=== PATIENT | female | born 1975 | race African-American/Black ===

== ENCOUNTER 2016-11-22 13:04 | Emergency (ER) | payer MEDICAID, MEDICARE, OTHER ==
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
== END 2016-11-22 14:00 | disposition home or self-care (01) ==
LOC: FB.ED 13:04
CPT/HCPCS: 99283

== ENCOUNTER 2018-03-05 12:04 | Emergency (ER) | payer MEDICARE, MEDICAID ==
--- NOTE | 2018-03-05 12:20 | EDM.PDOC ---
ED HPI GENERAL MEDICAL PROBLEM - General Stated Complaint: RT FOOT Time Seen by Provider: 03/05/18 12:04 Source of Information: Reports: Patient History Limitations: Reports: No Limitations - History of Present Illness INITIAL COMMENTS - FREE TEXT/NARRATIVE: 42 y.o.b f came to the ed by herself after she injured her right lower leg, not at work. Pt has pain at her right ankle, right foot and T/F when walking. She noticed an abrasion on her right No other acute medical issues. BP 154/103 RR 18 pulse ox 100% on RA, Temp 36.8 Pt took motrin at 7 am today Onset Date: 03/05/18 Onset Time: 11:46 Duration: Hour(s): Location: Reports: Lower Extremity, Right Quality: Reports: Ache, Dull, Pressure Severity: Moderate Improves with: Reports: Rest Worsens with: Reports: Movement Context: Reports: Trauma Associated Symptoms: Reports: No Other Symptoms - Related Data Allergies Allergy/AdvReac Type Severity Reaction Status Date / Time naproxen Allergy Bleeding Verified 03/05/18 12:33 Sulfa (Sulfonamide Allergy Rash Verified 03/05/18 12:33 Antibiotics) numerous food allergies Allergy Nausea Uncoded 03/05/18 12:33 Home Meds: Home Meds ALPRAZolam [Alprazolam] 0.5 mg PO BID PRN 11/22/16 [History] Acetaminophen/HYDROcodone [[place] 325-10 MG] 1 tab PO QID 11/22/16 [History] Baclofen 20 mg PO TID PRN 11/22/16 [History] Escitalopram [Lexapro] 10 mg PO BEDTIME 11/22/16 [History] Estradiol 1 mg PO DAILY 11/22/16 [History] Gabapentin [Neurontin] 400 mg PO BEDTIME 11/22/16 [History] Gabapentin [Neurontin] 800 mg PO DAILY 11/22/16 [History] Hydrochlorothiazide 25 mg PO DAILY 11/22/16 [History] Prazosin HCl [Prazosin] 2 mg PO BEDTIME 11/22/16 [History] clonazePAM [Klonopin] 1 mg PO TID 11/22/16 [History] lamoTRIgine 200 mg PO BEDTIME 11/22/16 [History] Past Medical History Cardiovascular History: Reports: Hypertension Respiratory History: Reports: Asthma 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 Musculoskeletal History: Reports: Fibromyalgia, Other (See Below) Other Musculoskeletal History: torn rotator cuff on left Neurological History: Reports: Other (See Below) Other Neuro History: recent subdural hematoma Psychiatric History: Reports: Anxiety, Depression - Past Surgical History Other GI Surgeries/Procedures: gastric sleeve Musculoskeletal Surgical History: Reports: Carpal Tunnel, Other (See Below) Social & Family History - Family History Family Medical History: Noncontributory - Caffeine Use Caffeine Use: Reports: Coffee, Soda Review of Systems - Review of Systems Review Of Systems: See Below Constitutional: Reports: No Symptoms Eyes: Reports: No Symptoms Ears: Reports: No Symptoms Nose: Reports: No Symptoms Mouth/Throat: Reports: No Symptoms Respiratory: Reports: No Symptoms Cardiovascular: Reports: No Symptoms GI/Abdominal: Reports: No Symptoms Genitourinary: Reports: No Symptoms Musculoskeletal: Reports: Leg Pain (right leg) Skin: Reports: Wound (abrasion right lower leg) Neurological: Reports: No Symptoms Psychiatric: Reports: No Symptoms ED EXAM, GENERAL - Physical Exam Exam: See Below Exam Limited By: No Limitations General Appearance: Alert, WD/WN, Mild Distress Eye Exam: Bilateral Eye: Normal Inspection Ears: Normal External Exam Ear Exam: Bilateral Ear: Auricle Normal Nose: Normal Inspection, Normal Mucosa Throat/Mouth: Normal Inspection, Normal Lips, Normal Voice, No Airway Compromise Head: Atraumatic, Normocephalic Neck: Normal Inspection, Supple, Non-Tender Respiratory/Chest: No Respiratory Distress, Lungs Clear, Normal Breath Sounds, No Accessory Muscle Use, Chest Non-Tender Cardiovascular: Normal Peripheral Pulses, Regular Rate, Rhythm, No Edema Peripheral Pulses: 1+: Radial (L) GI/Abdominal: Normal Bowel Sounds (Female) Exam: Deferred Rectal (Female) Exam: Deferred Back Exam: Normal Inspection Extremities: Normal Inspection, Normal Range of Motion, Non-Tender, No Pedal Edema Neurological: Alert, Oriented, CN II-XII Intact, Normal Cognition Psychiatric: Normal Affect, Normal Mood Skin Exam: Warm, Dry, Intact, Normal Color, No Rash Lymphatic: No Adenopathy Course - Vital Signs Text/Narrative:: 42 y.o.b f came to the ed by herself after she injured her right lower leg, not at work. Pt has pain at her right ankle, right foot and T/F when walking. She noticed an abrasion on her right No other acute medical issues. BP 154/103 RR 18 pulse ox 100% on RA, Temp 36.8 Imaging: X Ray of right foot, ankle an dT/F were all NEG Impression: R lower leg sprain, abrasion Tx: Ice, Motrin Reexam: Improved Plan: D/C with instructions - Orders/Labs/Meds Orders: Active Orders 24 hr Category Date Time Status Cooling Warming Measures [RC] ASDIRECTED Care 03/05/18 12:22 Active Foot Comp Min 3V Rt [CR] Stat Exams 03/05/18 12:49 Taken Tibia Fibula Rt [CR] Stat Exams 03/05/18 12:49 Taken Ice Therapy [OM.PC] Routine Oth 03/05/18 12:22 Ordered Meds: Medications Discontinued Medications Generic Name Dose Route Start Last Admin Trade Name Brian PRN Reason Stop Dose Admin Ibuprofen 600 mg 03/05/18 12:22 03/05/18 13:27 Motrin PO 03/05/18 12:23 600 mg ONETIME ONE Administration Departure - Departure Time of Disposition: 15:03 Disposition: Home, Self-Care 01 Condition: Good Clinical Impression: Abrasion Sprain of right lower leg Qualifiers: Encounter type: initial encounter Qualified Code(s): S83.91XA - Sprain of unspecified site of right knee, initial encounter - Discharge Information Instructions: Ankle Sprain Referrals: Eloisa Pickard NP [Primary Care Provider] - Forms: ED Return to Work/School Form Additional Instructions: Please take Motrin for pain, please apply ICE to the affected area, please elevate right leg, apply neosporine to abrasion twice daily. Please f/u with your PMD, come back to the ED if your symptoms get worse acutely - My Orders Last 24 Hours: My Active Orders 03/05/18 12:22 Cooling Warming Measures [RC] ASDIRECTED Ice Therapy [OM.PC] Routine 03/05/18 12:49 Foot Comp Min 3V Rt [CR] Stat Tibia Fibula Rt [CR] Stat - Assessment/Plan Last 24 Hours: My Active Orders 03/05/18 12:22 Cooling Warming Measures [RC] ASDIRECTED Ice Therapy [OM.PC] Routine 03/05/18 12:49 Foot Comp Min 3V Rt [CR] Stat Tibia Fibula Rt [CR] Stat
[2018-03-05] MEDS ORDERED: Ibuprofen 600 MG Tab PO ONE (12:22)
[2018-03-05 21:17] VITALS: BP 154/103
--- NOTE | 2018-03-07 13:43 | CR ---
INDICATION: Pain. RIGHT TIBIA/FIBULA: COMPARISON: Foot x-ray same date. FINDINGS: No fracture. No periosteal reaction. IMPRESSION: 1. No fracture. MTDD
--- NOTE | 2018-03-07 13:47 | CR ---
INDICATION: Pain. RIGHT FOOT: COMPARISON: None. FINDINGS: No fracture. Joint spacing maintained. If symptoms persist, consider followup. IMPRESSION: 1. No fracture. MTDD
== END 2018-03-05 15:20 | disposition home or self-care (01) ==
LOC: FB.ED 12:04
DX: S93.401A Sprain of unspecified ligament of right ankle, initial encounter (principal); S93.601A Unspecified sprain of right foot, initial encounter; S80.811A Abrasion, right lower leg, initial encounter; I10 Essential (primary) hypertension; F32.9 Major depressive disorder, single episode, unspecified; Z88.2 Allergy status to sulfonamides; Z88.8 Allergy status to other drugs, medicaments and biological substances; Z79.899 Other long term (current) drug therapy; W23.0XXA Caught, crushed, jammed, or pinched between moving objects, initial encounter
CPT/HCPCS: 73590; 73630; 99283; A9270

== ENCOUNTER 2021-05-24 11:28 | Emergency (ER) | payer MEDICARE, MEDICAID ==
[2021-05-24] MEDS ORDERED: EPINEPHrine 1 MG/ML SDV SUBCUT ONE (11:30)
[2021-05-24] MEDS ORDERED: methylPREDNISolone Sodium Succinate 125 MG/2 ML SDV IVPUSH STA (11:39)
[2021-05-24] MEDS ORDERED: diphenhydrAMINE 50 MG/ML SDV IVPUSH ONE (11:40)
[2021-05-24] MEDS ORDERED: EPINEPHrine 1 MG/1 ML Amp SUBCUT ONE (11:41)
[2021-05-24] MEDS ORDERED: Labetalol 20 MG/4 ML Syringe IVPUSH STA (11:50)
--- NOTE | 2021-05-24 11:50 | EDM.PDOC ---
ED HPI GENERAL MEDICAL PROBLEM - General Time Seen by Provider: 05/24/21 11:35 Source of Information: Reports: Patient History Limitations: Reports: No Limitations - History of Present Illness INITIAL COMMENTS - FREE TEXT/NARRATIVE: Patient presented to the ED because of an insect bite. She got stung by a bee on the rt ankle and c/o itching, choking sensation and dyspnea although her oxygen saturation is 98% on RA. - Related Data Allergies Allergy/AdvReac Type Severity Reaction Status Date / Time naproxen Allergy Bleeding Verified 04/08/19 07:16 Sulfa (Sulfonamide Allergy Rash Verified 04/08/19 07:16 Antibiotics) numerous food allergies Allergy Nausea Uncoded 03/05/18 12:33 Home Meds: Home Meds ALPRAZolam [Alprazolam] 0.5 mg PO BID PRN 11/22/16 [History] Acetaminophen/HYDROcodone [[place] 325-10 MG] 1 tab PO QID 11/22/16 [History] Baclofen 20 mg PO TID PRN 11/22/16 [History] Escitalopram [Lexapro] 10 mg PO BEDTIME 11/22/16 [History] Estradiol 1 mg PO DAILY 11/22/16 [History] Gabapentin [Neurontin] 400 mg PO BEDTIME 11/22/16 [History] Gabapentin [Neurontin] 800 mg PO DAILY 11/22/16 [History] Hydrochlorothiazide 25 mg PO DAILY 11/22/16 [History] Prazosin HCl [Prazosin] 2 mg PO BEDTIME 11/22/16 [History] clonazePAM [Klonopin] 1 mg PO TID 11/22/16 [History] lamoTRIgine 200 mg PO BEDTIME 11/22/16 [History] Past Medical History Cardiovascular History: Reports: Hypertension Respiratory History: Reports: Asthma 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 Musculoskeletal History: Reports: Fracture, Fibromyalgia, Other (See Below) Other Musculoskeletal History: torn rotator cuff on left Neurological History: Reports: Concussion, Other (See Below) Other Neuro History: recent subdural hematoma, dystonia Psychiatric History: Reports: Anxiety, Depression - Past Surgical History Other GI Surgeries/Procedures: gastric sleeve Musculoskeletal Surgical History: Reports: Carpal Tunnel, Other (See Below) Social & Family History - Family History Family Medical History: No Pertinent Family History - Caffeine Use Caffeine Use: Reports: Coffee, Soda ED ROS GENERAL - Review of Systems Review Of Systems: See Below Constitutional: Reports: No Symptoms HEENT: Reports: No Symptoms Respiratory: Reports: Shortness of Breath Cardiovascular: Reports: No Symptoms Endocrine: Reports: No Symptoms GI/Abdominal: Reports: No Symptoms : Reports: No Symptoms Musculoskeletal: Reports: No Symptoms Skin: Reports: No Symptoms Neurological: Reports: No Symptoms Psychiatric: Reports: No Symptoms ED EXAM, GENERAL - Physical Exam Exam: See Below Exam Limited By: No Limitations General Appearance: Alert, No Apparent Distress Eye Exam: Bilateral Eye: PERRL Ears: Normal External Exam, Normal Canal Nose: Normal Inspection, Normal Mucosa, No Blood Throat/Mouth: Normal Inspection, Normal Lips, Normal Teeth, Normal Gums Head: Atraumatic, Normocephalic Neck: Normal Inspection, Supple, Non-Tender, Full Range of Motion Respiratory/Chest: No Respiratory Distress, Lungs Clear, Normal Breath Sounds Cardiovascular: Normal Peripheral Pulses, Regular Rate, Rhythm, No Edema, No Gallop, No JVD, No Murmur GI/Abdominal: Normal Bowel Sounds, Soft, Non-Tender, No Organomegaly, No Distention, No Abnormal Bruit, No Mass Extremities: Normal Inspection, Normal Range of Motion, Non-Tender Neurological: Alert, Oriented, CN II-XII Intact, Normal Cognition Psychiatric: Normal Affect, Normal Mood Course - Vital Signs Text/Narrative:: Benadarly 50 mg IV x1 Epi 0.3 mg SC x1 Solumedrol 125 mg IV x1 - Orders/Labs/Meds Meds: Medications Discontinued Medications Generic Name Dose Route Start Last Admin Trade Name Freq PRN Reason Stop Dose Admin Diphenhydramine HCl 50 mg 05/24/21 11:40 05/24/21 11:32 Diphenhydramine 50 Mg/Ml Sdv IVPUSH 05/24/21 11:41 50 mg ONETIME ONE Administration Epinephrine HCl 0.3 mg 05/24/21 11:30 05/24/21 11:30 Epinephrine 1 Mg/Ml Sdv SUBCUT 05/24/21 11:31 0.3 mg ONETIME ONE Administration Labetalol HCl 20 mg 05/24/21 11:50 05/24/21 12:06 Labetalol 20 Mg/4 Ml Syringe IVPUSH 05/24/21 11:51 20 mg NOW STA Administration Protocol Methylprednisolone Sodium Succinate 125 mg 05/24/21 11:39 05/24/21 11:36 Methylprednisolone Sodium Succinate 125 Mg/2 Ml Sdv IVPUSH 05/24/21 11:40 125 mg NOW STA Administration Departure - Departure Time of Disposition: 00:15 Disposition: Home, Self-Care 01 Condition: Good Clinical Impression: Hypertensive crisis, Bee sting allergy - Discharge Information Instructions: Allergies, Adult, [id number], Hypertension, Adult, [id number] Forms: ED Department Discharge Additional Instructions: Please read discharge instructions on bee sting allergy. Take benadryl 50 mg every 4 hours as needed for itching Follow up as needed
[2021-05-24 12:41] VITALS: PULSE 74
[2021-05-24 13:02] VITALS: BP 149/100
== END 2021-05-24 12:30 | disposition home or self-care (01) ==
LOC: FB.ED 11:28
DX: T63.441A Toxic effect of venom of bees, accidental (unintentional), initial encounter (principal); I16.9 Hypertensive crisis, unspecified; J45.909 Unspecified asthma, uncomplicated; Z88.6 Allergy status to analgesic agent; Z88.2 Allergy status to sulfonamides; Z91.018 Allergy to other foods; Z79.899 Other long term (current) drug therapy
CPT/HCPCS: 96372; 96374; 96375; 99283-25; J0171; J1200; J2930; J3490